=== PATIENT | female | born 1990 | race Two or more races ===

== ENCOUNTER 2023-09-15 10:47 | Outpatient (CLI) | payer OTHER ==
[~2023-09-15 10:47] MED LIST: CLARINEX-D 21 BOTTLE PO
== END 2023-09-15 10:53 | disposition home or self-care (01) ==
LOC: PRENATAL 10:47
PROVIDERS: ATTEND Obstetrics & Gynecology Maternal & Fetal Medicine
DX: O36.80X0 Pregnancy with inconclusive fetal viability, not applicable or unspecified (principal); Z36.82 Encounter for antenatal screening for nuchal translucency; Z3A.12 12 weeks gestation of pregnancy

== ENCOUNTER 2023-11-07 09:02 | Outpatient (CLI) | payer OTHER | END 2023-11-07 09:05 | disposition home or self-care (01) | LOC: PRENATAL 09:02 | PROVIDERS: ATTEND Obstetrics & Gynecology Maternal & Fetal Medicine | DX: O35.9XX0 Maternal care for (suspected) fetal abnormality and damage, unspecified, not applicable or unspecified (principal); O35.3XX0 Maternal care for (suspected) damage to fetus from viral disease in mother, not applicable or unspecified; O44.00 Complete placenta previa NOS or without hemorrhage, unspecified trimester; Z3A.20 20 weeks gestation of pregnancy ==

== ENCOUNTER → 2024-02-13 15:32 | Outpatient (CLI) | payer OTHER | END | disposition home or self-care (01) | LOC: PRENATAL 15:32 | PROVIDERS: ATTEND Obstetrics & Gynecology Maternal & Fetal Medicine | DX: O26.843 Uterine size-date discrepancy, third trimester (principal); O36.8130 Decreased fetal movements, third trimester, not applicable or unspecified; Z3A.34 34 weeks gestation of pregnancy ==

== ENCOUNTER 2024-03-06 14:00 | Inpatient (IN) | payer OTHER ==
[~2024-03-06] VITALS: Ht 154.9 cm; Wt 2.7 kg
[2024-03-22] MEDS ORDERED: PRENATABS RX T1 EACH PO (06:54)
[2024-03-22] MEDS ORDERED: VALTREX1000 MG PO (06:54)
[2024-03-22] MEDS ORDERED: OXYTOCIN 500 ML IV SCH (08:15)
[2024-03-22 09:00] LABS: INR < 0.93; PARTIAL THROMBOPLASTIN TIME 24.5 SECONDS (22.0-34.0); PROTHROMBIN TIME 9.3 SECONDS (9.0-11.5); URINE APPEARANCE Clear; URINE BILIRRUBIN Negative (NEGATIVE); URINE BLOOD Negative; URINE COLOR Yellow; URINE GLUCOSE Negative (NEGATIVE); URINE KETONE Negative (NEGATIVE); URINE LEUKOCYTE Negative; URINE NITRATE Negative; URINE PROTEIN Negative (NEGATIVE); URINE UROBILINOGEN 0.2 E.U./dl
[2024-03-22 09:05] LABS: URINE BACTERIA 692.7 uL (0.0-1933); URINE EPITHELIAL CELLS 47.1 uL (0.0-38.8)
[2024-03-22 09:15] LABS: URINE RBC 1.8 uL (0.0-20.8)
[2024-03-22 09:19] LABS: ALBUMIN 2.7 gm/dL (3.4-5.0); BILIRUBIN TOTAL 0.45 mg/dL (0.3-1.2); CALCIUM 9.5 mg/dL (8.5-10.1); CREATININE SERUM 0.69 mg/dL (0.55-1.02); GFR 99.23; POTASSIUM 4.64 mEq/L (3.5-5.1); TOTAL PROTEIN 6.7 gm/dL (6.4-8.2)
[2024-03-22 10:12] LABS: HEMATOCRIT 36.5 % (36.0-45.00); HEMOGLOBIN 12.8 g/dL (12.0-15.00); MEAN CELL VOLUME 88.6 fL (80.00-100.00); MEAN CORPUSCULAR HEMOGLOBIN 31.2 pg (27.00-32.0); MEAN CORPUSCULAR HGB CONC 35.2 g/dl (32.0-36.0); RED BLOOD COUNT 4.12 M/uL (4.00-6.00); RED CELL DISTRIBUTION WIDTH 14.5 % (11.5-14.5)
[2024-03-22 10:14] LABS: PLATELET COUNT 107 K/uL (150-450)
[2024-03-22] MEDS ORDERED: PROMETHAZINE HCL 50 MG/ML AMPUL IM ONE (13:48)
[2024-03-22] MEDS ORDERED: MEPERIDINE HCL/PF 50 MG/ML VIAL IV NR (14:00)
[2024-03-22] MEDS ORDERED: PROMETHAZINE HCL 50 MG/ML AMPUL IV NR (14:00)
[2024-03-22] MEDS ORDERED: CITRIC ACID/SODIUM CITRATE 30 ML BLIST.PACK PO ONE (17:19)
[2024-03-22] MEDS ORDERED: CITRIC ACID/SODIUM CITRATE 30 ML BLIST.PACK PO NR (17:30)
[2024-03-22] MEDS ORDERED: CEFAZOLIN SODIUM 1,000 MG VIAL ONE (18:59)
[2024-03-22] MEDS ORDERED: OXYTOCIN 10 UNITS/ML VIAL ONE (19:03)
[2024-03-22] MEDS ORDERED: ERYTHROMYCIN BASE 1 GM TUBE OP ONE (19:03)
[2024-03-22] MEDS ORDERED: CEFAZOLIN SODIUM 1,000 MG VIAL IV SCH (19:30)
[2024-03-22] MEDS ORDERED: MEPERIDINE HCL/PF 50 MG/ML VIAL IV SCH (21:52)
[2024-03-22] MEDS ORDERED: SIMETHICONE 125 MG CAPSULE PO SCH (21:53)
[2024-03-22] MEDS ORDERED: PROMETHAZINE HCL 50 MG/ML AMPUL IM SCH (21:53)
[2024-03-22] MEDS ORDERED: ERYTHROMYCIN BASE 1 GM TUBE OP SCH (22:00)
[2024-03-22] MEDS ORDERED: CHLORHEXIDINE GLUCONATE 120 ML BOTTLE TOP SCH (22:00)
[2024-03-22] MEDS ORDERED: RINGERS SOLUTION,LACTATED 1,000 ML IV SCH (22:00)
[2024-03-22] MEDS ORDERED: OXYTOCIN 1,000 ML IV SCH (22:00)
[2024-03-23 01:28] LABS: MEAN CELL VOLUME 87.7 fL (80.00-100.00); MEAN CORPUSCULAR HGB CONC 34.9 g/dl (32.0-36.0); PLATELET COUNT 135 K/uL (150-450); RED BLOOD COUNT 3.31 M/uL (4.00-6.00); RED CELL DISTRIBUTION WIDTH 14.3 % (11.5-14.5)
[2024-03-23 01:31] LABS: HEMOGLOBIN 10.1 g/dL (12.0-15.00); MEAN CORPUSCULAR HEMOGLOBIN 30.5 pg (27.00-32.0)
[2024-03-23] MEDS ORDERED: NAPROXEN 500 MG TABLET PO PRN (09:00)
[2024-03-23] MEDS ORDERED: DOCUSATE SODIUM 100MG CAP PO SCH (09:00)
[2024-03-23] MEDS ORDERED: ACETAMINOPHEN WITH CODEINE 1 UDTAB TABLET PO PRN (09:00)
[2024-03-25] MEDS ORDERED: NAPR500T14 PO (12:40)
[2024-03-25] MEDS ORDERED: ACETAMINOPHEN-1 EAC2 PO (12:40)
[2024-03-25] MEDS ORDERED: COLACE100 MG PO (12:40)
== END 2024-03-25 13:31 | disposition home or self-care (01) | DRG 788 ==
LOC: LDR 03-22 06:31 → OB/GYN 03-22 20:51
PROVIDERS: Obstetrics & Gynecology; ADMIT Obstetrics & Gynecology; ATTEND Obstetrics & Gynecology
PROC: 4A1HXCZ Monitoring of Products of Conception, Cardiac Rate, External Approach (ICD-10-PCS; 2024-03-22)
PROC: 10D00Z1 Extraction of Products of Conception, Low, Open Approach (ICD-10-PCS; principal; 2024-03-22 19:15)
DX: O36.8330 Maternal care for abnormalities of the fetal heart rate or rhythm, third trimester, not applicable or unspecified (principal); Z3A.39 39 weeks gestation of pregnancy; Z37.0 Single live birth; Z20.822 Contact with and (suspected) exposure to COVID-19